=== PATIENT | male | born 1950 | race Caucasian/White ===

== ENCOUNTER 2020-12-25 13:54 | Emergency (ER) | payer MEDICARE, OTHER ==
--- NOTE | 2020-12-25 14:57 | EDM.PDOC ---
ED HPI GENERAL MEDICAL PROBLEM - General Chief Complaint: Respiratory Problem Stated Complaint: SHORTNESS OF BREATH,CONGESTED,COUGHING UP BLOOD Time Seen by Provider: 12/25/20 14:35 Source of Information: Reports: Patient, Family History Limitations: Reports: No Limitations - History of Present Illness INITIAL COMMENTS - FREE TEXT/NARRATIVE: 70-year-old male with a productive cough of the past several days, some mild chest tightness and wheezing but no real shortness of breath. This happens to him "every year" and is taken care of with antibiotics and prednisone. He also has some chronic watery eyes for the past several months. No fevers or chills, no pain, no nausea or vomiting or other symptoms. Onset: Gradual Duration: Day(s): (4 to 6 days of symptoms) Associated Symptoms: Reports: Cough, Malaise, Shortness of Breath (Mild and intermittent). Denies: Chest Pain, Fever/Chills - Related Data Allergies Allergy/AdvReac Type Severity Reaction Status Date / Time No Known Allergies Allergy Verified 12/25/20 14:34 Home Meds: Home Meds Cholecalciferol (Vitamin D3) [Vitamin D3] 25 mcg PO BEDTIME 12/25/20 [History] Lawrence-3/DHA/Epa/Fish Oil [Fish Oil Lawrence-3 EC 1,200 mg] 2,000 mg PO DAILY 12/25/20 [History] Omeprazole 20 mg PO BEDTIME 12/25/20 [History] Rivaroxaban [Xarelto] 20 mg PO BEDTIME 12/25/20 [History] Simvastatin 80 mg PO BEDTIME 12/25/20 [History] Tamsulosin HCl 0.4 mg PO BEDTIME 12/25/20 [History] Terbinafine HCl 250 mg PO BEDTIME 12/25/20 [History] Past Medical History Cardiovascular History: Reports: High Cholesterol, Other (See Below) Other Cardiovascular History: HISTORY OF AFIB AND AFLUTTER Oncologic (Cancer) History: Reports: Non-Hodgkin's Lymphoma, Other (See Below) Other Oncologic History: THROAT - Infectious Disease History Infectious Disease History: Reports: Chicken Pox, Measles, Mumps - Past Surgical History GI Surgical History: Reports: Hernia Repair/Other Oncologic Surgical History: Reports: Other (See Below) Other Oncologic Surgeries/Procedures: 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 Denies: Throat Pain Respiratory: Reports: Shortness of Breath, Cough, Sputum Cardiovascular: Reports: Dyspnea on Exertion. Denies: Chest Pain, Palpitations GI/Abdominal: Denies: Abdominal Pain, Nausea, Vomiting Skin: Reports: No Symptoms Neurological: Denies: Headache Psychiatric: Reports: No Symptoms ED EXAM, GENERAL - Physical Exam Exam: See Below Exam Limited By: No Limitations General Appearance: Alert, No Apparent Distress Eye Exam: Bilateral Eye: Normal Inspection (No increased erythema or discharge seen), PERRL Respiratory/Chest: No Respiratory Distress, Wheezing (A few scattered expiratory wheezes are heard in the upper lungs posteriorly, scattered rhonchi perihilar but otherwise good air movement.) Neurological: Alert, Oriented Psychiatric: Normal Affect, Normal Mood Skin Exam: Warm, Dry Course - Vital Signs Last Recorded V/S: Last Vital Signs Temp 100.8 F H 12/25/20 15:07 Pulse 80 12/25/20 15:07 Resp 12 12/25/20 15:07 BP 132/73 12/25/20 15:07 Pulse Ox 96 12/25/20 15:07 - Re-Assessments/Exams Free Text/Narrative Re-Assessment/Exam: 12/25/20 14:55 Patient was placed on a course of Zithromax as well as 60 mg of prednisone daily for 5 consecutive days. This is very similar to treatment he has had in the past that he has responded very well to. He will return in the next 48 to 72 hours if not improving satisfactorily. Departure - Departure Time of Disposition: 15:09 Disposition: Home, Self-Care 01 Clinical Impression: Bronchitis - Discharge Information Instructions: Acute Bronchitis, Adult Referrals: PCP,None [Primary Care Provider] - Forms: ED Department Discharge Care Plan Goals: Take antibiotic for 5 days, take 6 pills of prednisone daily with food with your first meal of the day. Consider starting the prednisone tomorrow as it may be difficult to sleep with prednisone later in the day. An residential youth counselor check of your eyes would be beneficial if not improving significantly after the steroid treatment. Sepsis Event Note (ED) - Focused Exam Vital Signs: Vital Signs Temp Pulse Resp BP Pulse Ox 12/25/20 15:07 100.8 F H 80 12 132/73 96
== END 2020-12-25 15:09 | disposition home or self-care (01) ==
LOC: JP.ED 13:54
DX: J40 Bronchitis, not specified as acute or chronic (principal); E78.00 Pure hypercholesterolemia, unspecified; I48.91 Unspecified atrial fibrillation; Z79.01 Long term (current) use of anticoagulants; Z79.899 Other long term (current) drug therapy; Z87.891 Personal history of nicotine dependence
CPT/HCPCS: 99284

== ENCOUNTER 2023-11-19 11:59 | Emergency (ER) | payer OTHER ==
[2023-11-19] MEDS: Lidocaine 1% 10 ML MDV INJECT ONE (13:13)
[2023-11-19] MEDS: Triamcinolone Acetonide 40 MG/ML 1 ML SDV INJECT ONE (13:13)
== END 2023-11-19 13:39 | disposition home or self-care (01) ==
LOC: JP.ED 12:04
DX: M17.12 Unilateral primary osteoarthritis, left knee (principal); E78.00 Pure hypercholesterolemia, unspecified; Z87.891 Personal history of nicotine dependence; Z79.899 Other long term (current) drug therapy
CPT/HCPCS: 20552; 99283; J3301